=== PATIENT | male | born 1970 | race Two or more races ===

== ENCOUNTER 2018-07-25 03:18 | Emergency (ER) | payer MEDICAID ==
[~2018-07-25] VITALS: Ht 180.3 cm; Wt 79.4 kg
[2018-07-25 03:31] VITALS: BP 156/90
[2018-07-25] MEDS ORDERED: BACI/NEOM/POLY B OINT PKT 1 UDPKT PACKET ONE (04:48)
[2018-07-25] MEDS ORDERED: CEPHALEXIN MONOHYDRATE 500 MG CAPSULE PO ONE ×2 (04:48→05:00)
[2018-07-25] MEDS ORDERED: SULFAMETH/TRIMETH 800/160 MG 1 UDTAB TABLET PO ONE ×2 (04:48→05:00)
[2018-07-25] MEDS ORDERED: BACI/NEOM/POLY B OINT PKT 1 UDPKT PACKET TP ONE (05:00)
== END 2018-07-25 05:42 | disposition home or self-care (01) ==
LOC: ER 03:24
DX: L03.011 Cellulitis of right finger (principal)